=== PATIENT | female | born 1975 | race Caucasian/White ===

== ENCOUNTER 2020-06-22 16:25 | Outpatient (CLI) | payer BC, OTHER | END 2020-06-22 16:26 | disposition home or self-care (01) | LOC: MADRAD 16:25 | PROVIDERS: ATTEND Nurse Practitioner Family | DX: M43.12 Spondylolisthesis, cervical region (principal) | CPT/HCPCS: 72050 ==

== ENCOUNTER 2021-08-20 11:37 | Outpatient (CLI) | payer BC, OTHER | END 2021-08-20 11:38 | disposition home or self-care (01) | LOC: MADRAD 11:37 | PROVIDERS: ATTEND Registered Nurse | DX: M25.552 Pain in left hip (principal) ==

== ENCOUNTER 2021-12-04 09:05 | Emergency (ER) | payer BC, OTHER ==
[2021-12-04] MEDS ORDERED: Ibuprofen 600 MG TAB ONE (09:36)
== END 2021-12-04 10:13 | disposition home or self-care (01) ==
LOC: MADERS 09:05
DX: S93.602A Unspecified sprain of left foot, initial encounter (principal); X50.1XXA Overexertion from prolonged static or awkward postures, initial encounter; Y93.61 Activity, american tackle football

== ENCOUNTER 2022-02-12 17:43 | Emergency (ER) | payer BC, OTHER ==
[2022-02-12] MEDS ORDERED: Ondansetron ODT 4 MG TAB ONE (18:05)
[2022-02-12] MEDS ORDERED: Meclizine HCl 25 MG TAB ONE (18:08)
[2022-02-12] MEDS ORDERED: Diazepam 10 MG/2 ML SYRINGE ONE (19:41)
== END 2022-02-12 22:26 | disposition home or self-care (01) ==
LOC: MADERS 17:43
DX: H83.09 Labyrinthitis, unspecified ear (principal)
CPT/HCPCS: 96372; 99283; J3360; Q0162

== ENCOUNTER 2022-08-31 21:20 | Emergency (ER) | payer OTHER, BC | END 2022-08-31 21:42 | disposition home or self-care (01) | LOC: MADERS 21:20 | DX: S00.83XA Contusion of other part of head, initial encounter (principal); W01.10XA Fall on same level from slipping, tripping and stumbling with subsequent striking against unspecified object, initial encounter | CPT/HCPCS: 99283 ==